=== PATIENT | male | born 1985 | race Caucasian/White ===

== ENCOUNTER 2017-02-06 23:27 | Emergency (ER) | payer BC ==
[~2017-02-06] VITALS: Ht 177.8 cm; Wt 81.6 kg
[2017-02-06] MEDS ORDERED: ABILIFY (23:42)
[2017-02-07] MEDS ORDERED: KETOROLAC TROMETHAMINE 60 MG INJ IM ONE ×2 (00:03)
--- NOTE | 2017-02-07 00:51 | NUR ---
Patient discharged to home in stable conditon. Written and verbal after care instructions given. Patient verbalizes understanding of instructions.
== END 2017-02-07 00:52 | disposition home or self-care (01) ==
LOC: ER 23:29
DX: S39.012A Strain of muscle, fascia and tendon of lower back, initial encounter (principal); V89.2XXA Person injured in unspecified motor-vehicle accident, traffic, initial encounter; Y93.89 Activity, other specified; Y99.8 Other external cause status; Y92.89 Other specified places as the place of occurrence of the external cause
CPT/HCPCS: A4663; J1885

== ENCOUNTER 2017-03-07 01:17 | Emergency (ER) | payer BC ==
[~2017-03-07] VITALS: Ht 177.8 cm; Wt 81.6 kg
[~2017-03-07 01:17] MED LIST: ABILIFY
[2017-03-07] MEDS ORDERED: methylPREDNISolone SOD SUCC 125 MG/2 ML VIAL IV ONE (02:00)
[2017-03-07] MEDS ORDERED: diphenhydrAMINE 50 MG/1 ML VIAL IV ONE (02:00)
[2017-03-07] MEDS ORDERED: VANCOMYCIN IV 1,000 MG in IV DEXTROSE 5% 250 ML IV ONE (02:00)
[2017-03-07] MEDS ORDERED: HYDROMORPHONE 1 MG/1 ML DISP.SYRIN IV ONE (02:15)
[2017-03-07] MEDS ORDERED: ONDANSETRON IV *ER 4 MG/2 ML VIAL IV ONE (02:15)
[2017-03-07] MEDS ORDERED: diphenhydrAMINE 50 MG/1 ML VIAL ONE (02:16)
[2017-03-07] MEDS ORDERED: HYDROMORPHONE 1 MG/1 ML DISP.SYRIN ONE (02:17)
[2017-03-07] MEDS ORDERED: methylPREDNISolone SOD SUCC 125 MG/2 ML VIAL ONE (02:17)
[2017-03-07] MEDS ORDERED: VANCOMYCIN IV 200 ML ONE (02:17)
[2017-03-07] MEDS ORDERED: ONDANSETRON 4 MG/2 ML VIAL ONE (02:17)
--- NOTE | 2017-03-07 02:30 | NUR ---
pt to room, pt c/o left arm swelling, redness and pain s/p attempting IV drug use. Pt also c/o being flushed, "swelling" feeling to his head with pressure. Pt c/o increasing pain to head and left arm. Resp even and unlabored. No resp distress noted, pt speaking full sentences, airway patent. Pt seen by MD. IV started. Pt medicated for pain and possible allergic reaction, will monitor for effects of medication. IV ABT infusion started, will monitor for any adverse reactions. Pt resting in position of comfort for self.
--- NOTE | 2017-03-07 03:25 | NUR ---
ABT infusion completed, no adverse reactions noted. Pt sts pain resolved. Pt stable for discharge per MD. IV dc'd, catheter intact. Drsg applied. No problems noted to site. Pt given ACI. Pt verbalized understanding of dc instructions. Pt ambulated out of er with steady gait to wait for ride.
[2017-03-07 03:26] VITALS: BP 136/77; PULSE 107; RESP 18; O2SAT 98
== END 2017-03-07 03:27 | disposition home or self-care (01) ==
LOC: ER 01:21
DX: L03.114 Cellulitis of left upper limb (principal); L50.0 Allergic urticaria
CPT/HCPCS: 96365; 96375; 99284; A4663; J1170; J1200; J2405; J2930; J3370

== ENCOUNTER 2017-03-21 19:27 | Emergency (ER) | payer BC ==
[~2017-03-21] VITALS: Ht 177.8 cm; Wt 79.4 kg
--- NOTE | 2017-03-21 19:41 | NUR ---
DR VIDAL INTO EVAL PATIENT
[2017-03-21] MEDS ORDERED: CEPHALEXIN (19:43)
[2017-03-21] MEDS ORDERED: BACTRIM (19:43)
[2017-03-21] MEDS ORDERED: LORAZEPAM 0.5 MG TABLET PO ONE (19:45)
[2017-03-21] MEDS ORDERED: ONDANSETRON ODT 4 MG TAB.RAPDIS SL ONE (19:45)
[2017-03-21 19:59] VITALS: BP 125/75
[2017-03-21] MEDS ORDERED: ONDANSETRON ODT 4 MG TAB.RAPDIS ONE (19:59)
[2017-03-21] MEDS ORDERED: LORAZEPAM 1 MG TABLET ONE (19:59)
--- NOTE | 2017-03-21 20:01 | NUR ---
Patient discharged to home in stable conditon. Written and verbal after care instructions given. Patient verbalizes understanding of instructions. WALKED OUT OF ER WITH STEADY GAIT NO DISTRESS NOTED
== END 2017-03-21 20:02 | disposition home or self-care (01) ==
LOC: ER 19:28
DX: F19.939 Other psychoactive substance use, unspecified with withdrawal, unspecified (principal)
CPT/HCPCS: A4663; Q0162

== ENCOUNTER 2017-04-19 00:29 | Emergency (ER) | payer BC ==
[~2017-04-19] VITALS: Ht 177.8 cm; Wt 79.4 kg
[~2017-04-19 00:29] MED LIST changes: +BACTRIM; +CEPHALEXIN
--- NOTE | 2017-04-19 00:57 | NUR ---
PT WALKED INTO ER WITH C/O ABSCESS ON RT UPPER ARM AND POSSIBLE LT UPPER ARM.PT STATES LT UPPER ARM IS FROM DRUGS YESTERDAY... PT IS ALERT, ORIENTED X 3, NO RESP DISTRESS NOTED OR REPORTED UPON ASSESSMENT... MD AT BEDSIDE..
[2017-04-19] MEDS ORDERED: VANCOMYCIN 1G/D5W 200 ML PIGGYBACK IV ONE (01:00)
[2017-04-19] MEDS ORDERED: VANCOMYCIN IV 200 ML ONE (01:33)
--- NOTE | 2017-04-19 03:36 | NUR ---
Patient discharged to home in stable conditon. Written and verbal after care instructions given. Patient verbalizes understanding of instructions. pt walked out of ER unassisted with belongings at side...
[2017-04-19 03:37] VITALS: BP 114/71
== END 2017-04-19 03:38 | disposition home or self-care (01) ==
LOC: ER 00:29
DX: L02.413 Cutaneous abscess of right upper limb (principal); F19.10 Other psychoactive substance abuse, uncomplicated
CPT/HCPCS: A4663; J3370

== ENCOUNTER 2017-04-25 17:14 | Emergency (ER) | payer BC ==
[~2017-04-25] VITALS: Ht 177.8 cm; Wt 79.4 kg
--- NOTE | 2017-04-25 17:30 | NUR ---
Patient discharged to home in stable conditon. Written and verbal after care instructions given to patient. Patient verbalizes understanding of instructions.
== END 2017-04-25 17:32 | disposition home or self-care (01) ==
LOC: ER 17:15
DX: L03.113 Cellulitis of right upper limb (principal); M79.631 Pain in right forearm; F19.10 Other psychoactive substance abuse, uncomplicated
CPT/HCPCS: A4663

== ENCOUNTER 2017-06-02 16:43 | Emergency (ER) | payer BC ==
[~2017-06-02] VITALS: Ht 177.8 cm; Wt 79.4 kg
[2017-06-02] MEDS ORDERED: TDAP DIPH,PERTUSS,TET VAC/PF 0.5 ML DISP.SYRIN IM ONE ×3 (17:15→17:35)
--- NOTE | 2017-06-02 18:06 | NUR ---
Patient discharged to home in stable conditon. Written and verbal after care instructions given. Patient verbalizes understanding of instructions.pt walks in steady gait.
== END 2017-06-02 18:08 | disposition home or self-care (01) ==
LOC: ER 16:43
DX: L03.114 Cellulitis of left upper limb (principal)
CPT/HCPCS: 73130; 90715; A4663

== ENCOUNTER 2017-06-02 22:15 | Emergency (ER) | payer BC ==
[~2017-06-02] VITALS: Ht 177.8 cm; Wt 77.1 kg
[2017-06-03] MEDS ORDERED: VANCOMYCIN IV 1,000 MG in IV DEXTROSE 5% 250 ML IV ONE (00:45)
[2017-06-03] MEDS ORDERED: HYDROMORPHONE 1 MG/1 ML DISP.SYRIN IV ONE (00:45)
--- NOTE | 2017-06-03 01:10 | NUR ---
Patient eloped from facility. ER physician notified.
== END 2017-06-03 01:29 | disposition left against medical advice (07) ==
LOC: ER 22:16
DX: L03.114 Cellulitis of left upper limb (principal); L03.113 Cellulitis of right upper limb
CPT/HCPCS: A4663